=== PATIENT | male | born 1975 | race Two or more races ===

== ENCOUNTER 2023-11-01 13:27 | Emergency (ER) | payer MEDICAID, OTHER ==
[~2023-11-01] VITALS: Ht 177.8 cm; Wt 74.8 kg
[2023-11-01] MEDS ORDERED: LIDOCAINE HCL 1% 20 ML VIAL ONE (15:15)
[2023-11-01] MEDS: LIDOCAINE HCL 1% 20 ML VIAL TP ONE (15:32)
[2023-11-01] MEDS ORDERED: CEphaleXIN 500 MG CAPSULE ONE (15:37)
[2023-11-01] MEDS: CEphaleXIN 500 MG CAPSULE PO ONE (15:39)
[2023-11-01] MEDS ORDERED: HYDR-3972 PO (16:32)
[2023-11-01] MEDS ORDERED: CEPH500C2 PO (16:32)
[2023-11-01 16:42] VITALS: BP 109/79; O2SAT 96
== END 2023-11-01 16:42 | disposition home or self-care (01) ==
LOC: ER 13:30
DX: S51.811A Laceration without foreign body of right forearm, initial encounter (principal); Z79.891 Long term (current) use of opiate analgesic; Z79.899 Other long term (current) drug therapy; Z60.2 Problems related to living alone; W18.39XA Other fall on same level, initial encounter; Y93.89 Activity, other specified; Y92.89 Other specified places as the place of occurrence of the external cause; Y99.8 Other external cause status
CPT/HCPCS: 12002; 12032; 73090; 99285; J3490; A4606; A4663

== ENCOUNTER 2023-11-03 16:10 | Emergency (ER) | payer MEDICAID ==
[~2023-11-03] VITALS: Ht 180.3 cm; Wt 74.8 kg
[~2023-11-03 16:10] MED LIST: CEPH500C2 PO; HYDR-3972 PO
[2023-11-03 16:15] VITALS: O2SAT 97
[2023-11-03] MEDS ORDERED: NEOMY/BACITRA/POLYMYXIN B OINT UD PACKET TP ONE (16:35)
[2023-11-03] MEDS ORDERED: HYDR-3974 PO (16:36)
[2023-11-03] MEDS: NEOMY/BACITRA/POLYMYXIN B OINT UD PACKET TP ONE (16:46)
== END 2023-11-03 16:48 | disposition home or self-care (01) ==
LOC: ER 16:10
DX: S51.811D Laceration without foreign body of right forearm, subsequent encounter (principal); Z76.0 Encounter for issue of repeat prescription; F17.200 Nicotine dependence, unspecified, uncomplicated; Z79.891 Long term (current) use of opiate analgesic; Z79.899 Other long term (current) drug therapy; Z60.2 Problems related to living alone
CPT/HCPCS: A4606; A4663

== ENCOUNTER 2023-11-17 18:37 | Emergency (ER) | payer MEDICAID ==
[~2023-11-17] VITALS: Ht 177.8 cm; Wt 74.8 kg
[~2023-11-17 18:37] MED LIST changes: +HYDR-3974 PO
[2023-11-17] MEDS ORDERED: NEOMY/BACITRA/POLYMYXIN B OINT UD PACKET TP ONE (19:14)
[2023-11-17] MEDS: NEOMY/BACITRA/POLYMYXIN B OINT UD PACKET TP ONE (19:14)
[2023-11-17 19:44] VITALS: BP 132/84; TEMP 98.1; O2SAT 98
== END 2023-11-17 19:44 | disposition home or self-care (01) ==
LOC: ER 18:40
DX: S51.811D Laceration without foreign body of right forearm, subsequent encounter (principal); Z48.02 Encounter for removal of sutures; X58.XXXD Exposure to other specified factors, subsequent encounter; F17.200 Nicotine dependence, unspecified, uncomplicated; Z88.7 Allergy status to serum and vaccine
CPT/HCPCS: A4606; A4663

== ENCOUNTER 2023-12-05 19:55 | Emergency (ER) | payer MEDICAID ==
[~2023-12-05] VITALS: Ht 180.3 cm; Wt 74.8 kg
[2023-12-05 21:10] LABS: BASOPHILS # (AUTO) 0.1 K/UL (0.0-0.2); BASOPHILS % (AUTO) 0.3 % (0.0-2.0); EOSINOPHILS # (AUTO) 0.1 K/uL (0.0-0.7); EOSINOPHILS % (AUTO) 0.5 % (0.0-7.0); HEMATOCRIT 31.9 % (36.7-47.1); HEMOGLOBIN 10.6 g/dL (12.5-16.3); LYMPHOCYTES # (AUTO) 2.3 K/uL (0.8-4.8); LYMPHOCYTES % (AUTO) 12.6 % (20.5-51.5); MEAN CORPUSCULAR HEMOGLOBIN 29.3 uug (23.8-33.4); MEAN CORPUSCULAR HGB CONC 33 g/dL (32.5-36.3); MEAN CORPUSCULAR VOLUME 88.1 fL (73.0-96.2); MONOCYTES # (AUTO) 1.1 K/uL (0.1-1.30); MONOCYTES % (AUTO) 6.1 % (0.0-11.0); NEUTROPHILS # (AUTO) 14.4 K/uL (1.8-8.9); NEUTROPHILS % (AUTO) 80.5 % (38.5-71.5); PLATELET COUNT (AUTO) 421 K/uL (152-348); RED BLOOD CELL COUNT(AUTO) 3.62 MIL/uL (4.06-5.63); RED CELL DISTRIBUTION WIDTH 13.5 % (12.1-16.2); WHITE BLOOD COUNT (AUTO) 17.9 K/uL (3.6-10.2)
[2023-12-05] MEDS: IV NORMAL SALINE 500 ML BAG IV ONE ×2 (21:10→21:35)
[2023-12-05 21:12] LABS: CALCIUM 9.1 mg/dL (8.5-10.1); CREATININE 1.1 mg/dL (0.6-1.3); DIFFERENTIAL COMMENT 1; POTASSIUM 4.3 mmol/L (3.5-5.1)
[2023-12-05 21:13] LABS: C-REACTIVE PROTEIN 18.49 mg/dL (0.00-0.30)
[2023-12-05 21:18] LABS: ALBUMIN 2.2 g/dL (3.4-5.0); BILIRUBIN,TOTAL 0.3 mg/dL (0.2-1.0); MAGNESIUM 2.1 mg/dL (1.8-2.4); TOTAL PROTEIN, SERUM 8.5 g/dL (6.4-8.2)
[2023-12-05] MEDS ORDERED: VANCOMYCIN IV 200 ML ONE (21:31)
[2023-12-05] MEDS ORDERED: CEFTRIAXONE /D5W 50ML IVPB **ER PYXIS IV ONE (21:31)
[2023-12-05] MEDS: CEFTRIAXONE 1 G in IV DEXTROSE 5% 50 ML IV ONE (21:40)
[2023-12-05] MEDS: VANCOMYCIN IV 1,000 MG in IV DEXTROSE 5% 250 ML IV ONE (22:10)
[2023-12-05 22:17] LABS: NT-PRO BNP 880 pg/mL (0-125)
[2023-12-06 00:01] VITALS: O2SAT 96
== END 2023-12-06 00:45 | disposition short-term general hospital (02) ==
LOC: ER 20:05
DX: L03.115 Cellulitis of right lower limb (principal); R60.0 Localized edema; L53.9 Erythematous condition, unspecified; M79.89 Other specified soft tissue disorders; F19.11 Other psychoactive substance abuse, in remission; F17.200 Nicotine dependence, unspecified, uncomplicated; Z79.899 Other long term (current) drug therapy; Z88.7 Allergy status to serum and vaccine
CPT/HCPCS: 99291; 93970; 96365; 96367; 96366; 80053; 83880; 83735; 85025; 86140; 87040 ×2; 84484; 36415; 71045; 93005; J0696; J3370; J7040 ×2; A4606; A4663